=== PATIENT | female | born 1955 | race Hispanic/Latino ===

== ENCOUNTER 2022-11-21 16:05 | Emergency (ER) | payer BC, OTHER ==
[~2022-11-21] VITALS: Ht 157.5 cm; Wt 81.2 kg
[2022-11-21 16:06] VITALS: BP 141/73
[2022-11-21] MEDS ORDERED: NAPR-1192 PO ×2 (16:19→16:32)
[2022-11-21] MEDS ORDERED: CYCL10TA16 PO ×2 (16:19→16:32)
[2022-11-21] MEDS ORDERED: IBUPROFEN 600 MG TABLET PO ONE (16:30)
== END 2022-11-21 16:36 | disposition home or self-care (01) ==
LOC: EDH 16:05
DX: S39.012A Strain of muscle, fascia and tendon of lower back, initial encounter (principal); S50.02XA Contusion of left elbow, initial encounter; E11.9 Type 2 diabetes mellitus without complications; Z90.710 Acquired absence of both cervix and uterus; W18.39XA Other fall on same level, initial encounter; Y93.89 Activity, other specified; Y92.89 Other specified places as the place of occurrence of the external cause; Y99.8 Other external cause status

== ENCOUNTER → 2023-04-06 | Outpatient (CLI) | payer OTHER ==
[~2023-04-06] MED LIST: CYCL10TA16 PO; GADOTERATE MEGLUMINE 10 MMOL/20 ML VIAL IV ONE; NAPR-1192 PO
== END | disposition home or self-care (01) ==
LOC: RAH 14:34
PROVIDERS: ATTEND Internal Medicine
DX: R92.0 Mammographic microcalcification found on diagnostic imaging of breast (principal); N63.20 Unspecified lump in the left breast, unspecified quadrant; R92.8 Other abnormal and inconclusive findings on diagnostic imaging of breast; R92.1 Mammographic calcification found on diagnostic imaging of breast
CPT/HCPCS: 77049; A9575

== ENCOUNTER → 2023-06-06 | Outpatient (CLI) | payer OTHER ==
[~2023-06-06] MED LIST changes: -GADOTERATE MEGLUMINE 10 MMOL/20 ML VIAL IV ONE
== END | disposition home or self-care (01) ==
LOC: RAH 09:47
PROVIDERS: ATTEND Internal Medicine
DX: M19.011 Primary osteoarthritis, right shoulder (principal); M75.40 Impingement syndrome of unspecified shoulder; M47.22 Other spondylosis with radiculopathy, cervical region
CPT/HCPCS: 72040; 73030

== ENCOUNTER → 2023-06-28 | Outpatient (CLI) | payer OTHER | END | disposition home or self-care (01) | LOC: RAH 13:30 | PROVIDERS: ATTEND Internal Medicine | DX: Z13.820 Encounter for screening for osteoporosis (principal); M85.89 Other specified disorders of bone density and structure, multiple sites; Z78.0 Asymptomatic menopausal state | CPT/HCPCS: 77080 ==

== ENCOUNTER → 2024-01-13 | Outpatient (CLI) | payer OTHER | END | disposition home or self-care (01) | LOC: RAH 13:03 | PROVIDERS: ATTEND Internal Medicine | DX: M19.042 Primary osteoarthritis, left hand (principal); M77.9 Enthesopathy, unspecified | CPT/HCPCS: 73120 ==